=== PATIENT | female | born 1970 | race Caucasian/White ===

== ENCOUNTER 2021-08-29 14:39 | Emergency (ER) | payer OTHER ==
[~2021-08-29] VITALS: Ht 177.8 cm; Wt 77.1 kg
[2021-08-29 15:33] LABS: HEMATOCRIT 38.6 % (37.0-47.0); HEMOGLOBIN 13.4 gm/dL (12.0-15.0); MCH 31.3 pg (26.0-34.0); MCHC 34.7 g/dL (28.0-37.0); MCV 90.3 fL (80.0-100.0); RBC 4.27 mil/uL (4.20-5.00); RDW 13.6 % (10.5-14.5)
[2021-08-29 15:44] LABS: CREATININE 0.8 mg/dL (0.6-1.0); POTASSIUM 4.1 mmol/L (3.5-5.1)
[2021-08-29 15:54] LABS: ALBUMIN 3.9 g/dL (3.4-5.0); MAGNESIUM 1.8 mg/dL (1.8-2.4); TOTAL BILIRUBIN 0.2 mg/dL (0.2-1.0); TOTAL PROTEIN 6.9 g/dL (6.4-8.2)
[2021-08-29 17:22] VITALS: BP 128/74
--- NOTE | 2021-08-30 07:17 | EKG ---
[address] [address] ELECTROCARDIOGRAM REPORT Name: RITCHIE LANGFORD Room #: [facility] Francois#: [id number] Admission: 08/29/21 Attend Phys: Discharge: 08/29/21 Date of : 70 Report #: [id number] [facility] ED Test Date: 2021-08-29 Test Time: 15:45:14 Pat Name: RITCHIE LANGFORD Department: Room: Gender: F Nuclear Monitoring Technician: ANGELLA : 1970 Requested By: Ana Gonsalves Order Number: [id number] MD: [place] Measurements Intervals [place] Rate: 76 P: 40 MI: 132 QRS: 82 QRSD: 105 T: 8 QT: 356 QTc: 401 Interpretive Statements Sinus rhythm Ventricular premature complex No previous ECG available for comparison Electronically Signed On 08-30-2021 7:17:00 MANAGER CONTROL by Allan Beach [email or web address] <ELECTRONICALLY SIGNED> By: Allan Beach MD, [facility] 08/30/21 0717 1545 1545 Allan Beach MD, FACC /EPI
== END 2021-08-29 17:23 | disposition home or self-care (01) ==
LOC: ER 14:39 → EDBD 14:39 → ER 17:23
PROVIDERS: Nurse Practitioner Family
DX: R00.2 Palpitations (principal)